=== PATIENT | female | born 1960 | race Caucasian/White ===

== ENCOUNTER 2022-11-28 11:59 | Day surgery (SDC) | payer OTHER ==
[~2022-11-28] VITALS: Ht 160 cm; Wt 57.2 kg
[~2022-11-28 11:59] MED LIST: ACETYLCHOLINE CHLORIDE 1 EA INTRAOCULAR SOLUTION KIT IO ONE; BALANCED SALT 15 ML OPHTHALMIC IRRIG.SOLN ONE; EPINEPHrine 1:1,000 [1 MG/ML] VIAL ONE; LIDOCAINE/PF 1% 2 ML VIAL ONE; RINGERS SOLUTION,LACTATED 500 ML IV ONE
[2022-11-28] MEDS ORDERED: RINGERS SOLUTION,LACTATED 500 ML IV ONE (12:00)
[2022-11-28] MEDS ORDERED: MIDAZOLAM HCL 2 MG/2 ML VIAL IVP ONE (12:00)
[2022-11-28] MEDS ORDERED: TETRACAINE HCL/PF 0.5% 4 ML OPHTHALMIC SOLUTION ONE ×2 (12:00→12:55)
[2022-11-28] MEDS ORDERED: FentaNYL CITRATE PF 100 MCG/2 ML VIAL IVP ONE (12:00)
[2022-11-28] MEDS ORDERED: PHENYLEPHRINE HCL 2.5% 2 ML OPHTHALMIC SOLUTION ONE (12:55)
[2022-11-28] MEDS ORDERED: MOXIFLOXACIN HCL 0.5% 3 ML OPHTHALMIC SOLUTION ONE (12:55)
[2022-11-28] MEDS ORDERED: CYCLOPENTOLATE HCL 1% 2 ML OPHTHALMIC SOLUTION ONE (12:55)
[2022-11-28] MEDS ORDERED: TROPICAMIDE 1% 2 ML OPHTHALMIC SOLUTION ONE (12:55)
[2022-11-28] MEDS ORDERED: FLURBIPROFEN SODIUM 0.03% 2.5 ML OPHTHALMIC SOLUTION ONE (12:56)
[2022-11-28] MEDS: TROPICAMIDE 1% 2 ML OPHTHALMIC SOLUTION OS SCH ×3 (13:00→13:14)
[2022-11-28] MEDS: CYCLOPENTOLATE HCL 1% 2 ML OPHTHALMIC SOLUTION OS SCH ×3 (13:00→13:14)
[2022-11-28] MEDS: FLURBIPROFEN SODIUM 0.03% 2.5 ML OPHTHALMIC SOLUTION OS SCH ×3 (13:00→13:15)
[2022-11-28] MEDS: PHENYLEPHRINE HCL 2.5% 2 ML OPHTHALMIC SOLUTION OS SCH ×3 (13:00→13:15)
[2022-11-28] MEDS ORDERED: ACETAMINOPHEN 325 MG TABLET PO PRN (13:00)
[2022-11-28] MEDS: TETRACAINE HCL/PF 0.5% 4 ML OPHTHALMIC SOLUTION OS SCH ×3 (13:01→13:16)
[2022-11-28] MEDS: MOXIFLOXACIN HCL 0.5% 3 ML OPHTHALMIC SOLUTION OS SCH ×3 (13:01→13:16)
[2022-11-28] MEDS ORDERED: ESKE84SP IN (13:23)
[2022-11-28] MEDS ORDERED: ROSU10TA72 PO (13:24)
[2022-11-28] MEDS ORDERED: FLUO60TA PO (13:25)
[2022-11-28] MEDS ORDERED: LORA10TA7 PO (13:26)
[2022-11-28] MEDS ORDERED: AMLO-258 PO (13:27)
[2022-11-28] MEDS ORDERED: GLYC1TAB27 PO (13:29)
[2022-11-28] MEDS ORDERED: FLUT1BLS18 IH (13:32)
[2022-11-28] MEDS ORDERED: TIOT185 IH (13:33)
[2022-11-30] MEDS ORDERED: FLUO20CA36 PO (12:51)
[2022-11-30] MEDS ORDERED: DONE-52 PO (12:51)
[2022-11-30] MEDS ORDERED: ALBU18HF12 IH (12:51)
[2022-11-30] MEDS ORDERED: BACL20TA PO (12:51)
[2022-11-30] MEDS ORDERED: QUET100T34 PO (12:51)
[2022-11-30] MEDS ORDERED: MONT-40 PO (12:51)
[2022-11-30] MEDS ORDERED: COLE625T14 PO (12:51)
[2022-11-30] MEDS ORDERED: FLUT12AE3 IH (12:51)
[2022-11-30] MEDS ORDERED: FLUO40CA PO (12:51)
[2022-11-30] MEDS ORDERED: OMEP40CA21 PO (12:51)
[2022-11-30] MEDS ORDERED: ALBU0.8311 NEB (12:51)
[2022-11-30] MEDS ORDERED: TIOT4MIS2 IH (12:51)
[2022-11-30] MEDS ORDERED: AMLO5TAB66 PO (12:51)
[2022-11-30] MEDS ORDERED: DICL2100G TP (12:51)
[2022-11-30] MEDS ORDERED: LISI20TA24 PO (12:51)
[2022-11-30] MEDS ORDERED: LORA-999 PO (12:51)
[2022-11-30] MEDS ORDERED: BENZ200C53 PO (12:51)
[2022-11-30] MEDS ORDERED: GUAI118S13 PO (12:51)
[2022-11-30] MEDS ORDERED: OXYC-618 PO (12:51)
== END 2022-11-28 16:10 | disposition home or self-care (01) ==
LOC: SURGERY 11:59
PROVIDERS: ATTEND Ophthalmology
DX: H25.12 Age-related nuclear cataract, left eye (principal); I10 Essential (primary) hypertension; J45.909 Unspecified asthma, uncomplicated; Z80.8 Family history of malignant neoplasm of other organs or systems; Z79.899 Other long term (current) drug therapy
CPT/HCPCS: 93005; 66984; J0171; J3010; J3490; J2250; J7120; V2787